=== PATIENT | male | born 1960 | race Caucasian/White ===

== ENCOUNTER 2018-02-28 11:06 | Inpatient (IN) | payer OTHER ==
[~2018-02-28] VITALS: Ht 172.7 cm; Wt 93.9 kg
[2018-02-28] MEDS ORDERED: METOPROLOL TART25 M1 PO (12:33)
[2018-02-28] MEDS ORDERED: CLOPIDOGREL75 M1 PO (12:33)
[2018-02-28] MEDS ORDERED: ATORVASTATIN CA40 M1 PO (12:33)
[2018-02-28] MEDS ORDERED: METFORMIN HCL1000 M1 PO (12:33)
[2018-02-28 12:34] LABS: ABSOLUTE BASOPHIL COUNT 0 /CUMM (0.0-0.2); ABSOLUTE EOSINOPHIL COUNT 0.1 /CUMM (0.0-0.7); ABSOLUTE GRANULOCYTE CT 7.7 /CUMM (1.4-6.5); ABSOLUTE LYMPH COUNT 0.3 /CUMM (1.2-3.4); ABSOLUTE MONOCYTE COUNT 0.8 /CUMM (0.10-0.60); BASOPHIL % 0.1 % (0.0-2.0); EOSINOPHIL % 0.6 % (0-5); GRANULOCYTE % 86.2 % (42.2-75.2); HEMATOCRIT 49.1 % (42-52); MEAN CORPUSCULAR HGB CONC 34.6 G/DL (33.0-37.0); MEAN CORPUSCULAR VOLUME 86.7 FL (80.0-94.0); MEAN PLATELET VOLUME 7.9 FL (7.4-10.4); PLATELET COUNT 240 /CUMM (130-400); RBC DISTRIBUTION WIDTH 14.1 % (11.5-14.5); RED BLOOD CELL CT 5.67 /CUMM (4.70-6.10); WHITE BLOOD CELL COUNT 8.9 /CUMM (4.8-10.8)
[2018-02-28] MEDS ORDERED: JARDIANCE10 M1 PO (12:34)
[2018-02-28] MEDS ORDERED: ASPIRIN81 M4 PO (12:36)
--- NOTE | 2018-02-28 12:40 | ED GI/GU/ABDOMINAL COMPLAINT ---
See Addendum History of Present Illness General Chief Complaint: Nausea, Vomiting, Diarrhea Stated Complaint: +NVD Source: patient, family, old records Exam Limitations: no limitations Vital Signs & Intake/Output Vital Signs & Intake/Output Vital Signs Date Time Temp Pulse Resp B/P B/P Pulse O2 O2 Flow FiO2 Mean Ox Delivery Rate 02/28 1548 94/62 02/28 1539 95/55 02/28 1536 99.4 102 18 99/54 98 Room Air 02/28 1231 99.0 82 22 145/79 97 Allergies Coded Allergies: iodine (HIVES 02/28/18) shellfish derived (HIVES 02/28/18) venom-honey bee (HIVES 02/28/18) Reconcile Medications Aspirin (Aspirin*) 81 MG TAB.CHEW 1 TAB PO DAILY HEART (Reported) Atorvastatin Calcium 40 MG TABLET 1 TAB PO DAILY CHOL (Reported) Clopidogrel Bisulfate (Clopidogrel) 75 MG TABLET 1 TAB PO DAILY THINNER ( Reported) Empagliflozin (Jardiance) 10 MG TABLET 1 TAB PO DAILY DM (Reported) Metformin HCl 1,000 MG TABLET 1 TAB PO BID DM (Reported) Metoprolol Tartrate 25 MG TABLET 1 TAB PO BID HTN (Reported) Triage Note: PT TO ED WITH C/O NAUSEA VOMITING AND DIARRHEA SINCE THIS MORNING. Triage Nurses Notes Reviewed? yes Onset: Abrupt Duration: hour(s):, 10pm last night HPI: Patient presents for evaluation of abdominal pain and vomiting and diarrhea beginning at about 10 PM last night. Patient states that patient had another episode of vomiting and diarrhea at about 8:00 this morning (nonbloody). The patient has had about 12-13 episodes of vomiting and diarrhea. Beginning at about 9:30 this morning the patient began vomiting bile. In addition the patient states he has felt severe dizziness fatigue and inability to ambulate and mildly headachy. Patient denies outright fever or other cold symptoms. The patient's suspects that he might be showing lactose intolerance over the past few months associated with dairy intake. Patient feels that he has improved somewhat with avoidance of dairy products. (Analisa ESQUIVEL,Froilan Michael) Past History Travel History Traveled to [place] past 21 day No Medical History Any Pertinent Medical History? see below for history Neurological: NONE EENT: NONE Cardiovascular: hypertension, STENTS, CHOL Respiratory: NONE Gastrointestinal: NONE Hepatic: NONE Renal: NONE Musculoskeletal: NONE Psychiatric: NONE Endocrine: NIDDM History of MRSA: No History of VRE: No History of CDIFF: No Surgical History Surgical History: non-contributory Psychosocial History Who do you live with Patient/Self Services at Home None What is your primary language Liberian Tobacco Use: Never used Family History Hx Contributory? No (Froilan Hauser MD) Review of Systems Review of Systems Constitutional: Reports: see HPI. EENTM: Reports: no symptoms. Respiratory: Reports: no symptoms. Cardiovascular: Reports: no symptoms. GI: Reports: see HPI. Genitourinary: Reports: no symptoms. Musculoskeletal: Reports: see HPI. Skin: Reports: no symptoms. Neurological/Psychological: Reports: no symptoms. Hematologic/Endocrine: Reports: no symptoms. Immunologic/Allergic: Reports: no symptoms. All Other Systems: Reviewed and Negative (Analisa ESQUIVEL,Froilan Michael) Physical Exam Physical Exam Gastrointestinal: see below Comments: Gen.: Well-nourished, well-developed, no acute respiratory distress. Head: Normocephalic, atraumatic. Eyes: Normal inspection bilaterally Ears: Normal inspection bilaterally Nose: Normal inspection Throat/mouth : Moist mucosa Neck: Supple, full range of motion, no goiter Heart: Regular rate and rhythm, no murmurs rubs or gallops Lungs: Clear to auscultation bilaterally with normal air entry Chest: Nontender Back: Normal range of motion Abdomen: Soft, nontender, nondistended, distant bowel sounds Extremities: Normal range of motion grossly, equal radial pulses, no cyanosis clubbing or edema Neurologic: Cranial nerves grossly intact, speech is clear Skin: warm and dry Psychiatric: Calm, cooperative, no apparent delusions or hallucinations Core Measures ACS in differential dx? No Sepsis Present: No Sepsis Focused Exam Completed? No (Froilan Hauser MD) Progress Differential Diagnosis: gastroenteritis, viral syndrome, food poisoning, dehydration, electrolyte abnormality, DKA Plan of Care: Orders Procedure Date/time Status Heart Healthy Diet 03/01 B Active ED Holding Orders 02/28 1710 Active Admit to inpatient 02/28 171 Active Add-on Test (ER Only) 02/28 1710 Active Vital Signs 02/28 1710 Active Code Status 02/28 1710 Active COMPREHENSIVE METABOLIC PANEL 02/28 1602 Active CULTURE,STOOL 02/28 1513 Active C.DIFFICILE 02/28 1513 Active BLOOD CULTURE 02/28 1513 Active CBC WITHOUT DIFFERENTIAL 02/28 1457 Complete URINALYSIS 02/28 1216 Active LIPASE 02/28 121 Complete COMPREHENSIVE METABOLIC PANEL 02/28 121 Complete CBC WITHOUT DIFFERENTIAL 02/28 121 Complete AMYLASE 02/28 121 Complete Current Medications Sig/Brandon Start time Last Medication Dose Stop Time Status Admin Insulin Human Regular 5 UNITS ONCE ONE 02/28 1715 UNVr (NovoLIN R) 02/29 1716 Insulin Human Regular 100 UNIT ONCE ONE 02/28 1715 UNir (Novolin R (Insulin 02/29 1716 Drip)) Sodium Chloride 100 ML (Normal Saline 0.9%) Sodium Chloride 1,000 ML BOLUS ONE 02/28 161 AC 02/28 (Normal Saline 0.9%) 02/28 1714 1605 Laboratory Tests 02/28/18 1520: CBC w Diff MAN DIFF ORDERED, RBC 5.10, MCV 87.4, MCH 30.4, MCHC 34.7, RDW 14.2, MPV 8.2, Gran % 84.7 H, Lymphocytes % 5.9 L, Monocytes % 8.8, Eosinophils % 0.4, Basophils % 0.2, Absolute Granulocytes 7.6 H, Segmented Neutrophils 66, Band Neutrophils 17 H, Absolute Lymphocytes 0.5 L, Lymphocytes 5 L, Monocytes 11 H, Absolute Monocytes 0.8 H, Eosinophils 1, Absolute Eosinophils 0, Absolute Basophils 0, Platelet Estimate VERIFIED BY SMEAR, Normocytic RBCs VERIFIED, Normochromic RBCs VERIFIED 02/28/18 1225: Anion Gap 22 H, Estimated GFR 48 L, BUN/Creatinine Ratio 12.7, Glucose 357 H, Calcium 9.8, Total Bilirubin 1.0, AST 44, ALT 54, Alkaline Phosphatase 86, Total Protein 8.2, Albumin 4.7, Globulin 3.5, Albumin/Globulin Ratio 1.3, Amylase 87, Lipase 214, CBC w Diff MAN DIFF ORDERED, RBC 5.67, MCV 86.7, MCH 30.0, MCHC 34.6 , RDW 14.1, MPV 7.9, Gran % 86.2 H, Lymphocytes % 3.6 L, Monocytes % 9.5 H, Eosinophils % 0.6, Basophils % 0.1, Absolute Granulocytes 7.7 H, Segmented Neutrophils 66, Band Neutrophils 21 H, Absolute Lymphocytes 0.3 L, Lymphocytes 3 L, Monocytes 8, Absolute Monocytes 0.8 H, Eosinophils 1, Absolute Eosinophils 0.1, Basophils 1, Absolute Basophils 0, Platelet Estimate VERIFIED BY SMEAR, Anisocytosis 1+ Microbiology 02/28 1513 STOOL: Clostridium difficile Toxin A & B - ORD 02/28 151 STOOL: Stool Culture - ORD 02/28 151 BLOOD: Blood Culture - ORD 02/28 151 BLOOD: Blood Culture - ORD Initial ED EKG: none Comments: 02/28/2018 3:03:12 PM MILY is feeling better and is asking for something to drink. I have advised him of the elevated band count and he is agreeable to a repeat CBCs to reevaluate his band count for improvement. 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 (Analisa ESQUIVEL,Froilan Michael) Departure Departure Condition: Stable Referrals: Enrique Soler MD (PCP/Family) Departure Forms: Customer Survey General Discharge Information (Analisa ESQUIVEL,Froilan Michael) Departure Disposition: STILL A PATIENT Clinical Impression Primary Impression: Hypotension Secondary Impressions: DKA (diabetic ketoacidoses), Vomiting Comments 02/28/18 4 PM 57-year-old man signed out to me by Dr. Hauser. Status post vomiting and diarrhea after eating pasta. He has a past medical history of diabetes mellitus and has been noncompliant. Review of his labs reveal glucose greater than 300 and an anion gap acidosis. He is also hypotensive. He is receiving additional IV fluids and his labs are being repeated. Admission Note Spoke With: Humble ESQUIVEL,Abdoulaye Caicedo Documentation of Exam: Documentation of any treatments & extenuating circumstances including Concerns Regarding Discharge (functional status, medication knowledge or non-compliance, living conditions, etc.) that warrant an admission rather than observation: [ Patient needs admission for IV fluids, insulin drip, endocrinology consult. The patient is in diabetic ketoacidosis, he also needs IV fluids as he is hypotensive] (Froilan Daley DO)
--- NOTE | 2018-02-28 14:46 | CT SCAN REPORT ---
EXAMINATION: CT ABDOMEN AND PELVIS WITHOUT CONTRAST CLINICAL INFORMATION: Abdominal pain, vomiting and diarrhea. COMPARISON: None TECHNIQUE: Multidetector volumetric imaging was performed from the superior aspect of the liver through the pubic symphysis. Sagittal and coronal reformatted images were obtained on the technologist's workstation. DLP: 607 mGy-cm FINDINGS: Visualized lung bases are well aerated. Punctate calcified granuloma of the right lung base. Incompletely visualized coronary artery calcifications. The liver demonstrates normal size and contour, however, echogenicity of the liver is diffusely decreased. There is some increased echogenicity adjacent to the gallbladder suggesting focal fatty sparing. The gallbladder is physiologically distended and grossly unremarkable. Mild fatty atrophy of the pancreas. The spleen and adrenal glands are unremarkable. The kidneys are symmetric in size. No renal calculi or hydronephrosis bilaterally. 1 cm right upper pole cyst. Subcentimeter hypodensity of the left kidney is too small to accurately characterize. Normal caliber loops of small and large bowel. Normal appendix. Scattered mesenteric and retroperitoneal lymph nodes are not pathologically enlarged. The abdominal aorta is normal in caliber and demonstrates only mild atherosclerotic disease. The bladder is only mildly distended and therefore difficult to accurately evaluate, but grossly unremarkable. Fat-containing bilateral inguinal hernias, left larger than right. No acute osseous abnormality. Bilateral L5 pars defects. IMPRESSION: 1. Diffusely decreased liver attenuation. This is nonspecific but most suggestive of hepatic steatosis with focal fatty sparing. 2. Small right renal cyst. Left renal hypodensity too small to accurately characterize. 3. Fat-containing bilateral inguinal hernias, left greater than right.
[2018-02-28 15:38] LABS: ABSOLUTE BASOPHIL COUNT 0 /CUMM (0.0-0.2); ABSOLUTE EOSINOPHIL COUNT 0 /CUMM (0.0-0.7); ABSOLUTE GRANULOCYTE CT 7.6 /CUMM (1.4-6.5); ABSOLUTE LYMPH COUNT 0.5 /CUMM (1.2-3.4); ABSOLUTE MONOCYTE COUNT 0.8 /CUMM (0.10-0.60); BASOPHIL % 0.2 % (0.0-2.0); EOSINOPHIL % 0.4 % (0-5); GRANULOCYTE % 84.7 % (42.2-75.2); HEMATOCRIT 44.6 % (42-52); MEAN CORPUSCULAR HGB 30.4 PG (27.0-31.0); MEAN CORPUSCULAR HGB CONC 34.7 G/DL (33.0-37.0); MEAN CORPUSCULAR VOLUME 87.4 FL (80.0-94.0); MEAN PLATELET VOLUME 8.2 FL (7.4-10.4); PLATELET COUNT 228 /CUMM (130-400); RBC DISTRIBUTION WIDTH 14.2 % (11.5-14.5); WHITE BLOOD CELL COUNT 8.9 /CUMM (4.8-10.8)
--- NOTE | 2018-02-28 19:14 | History & Physical ---
Shayne Duffy 02/28/181913: General Information and HPI MD Statement: I have seen and personally examined MILY MCBRIDE and documented this H&P. The patient is a 57 year old M who presented with a patient stated chief complaint of [N/V/D]. Source of Information: patient, old records Exam Limitations: no limitations History of Present Illness: This is 57 year-old man with medical history of HTN, HLD, CAD s/p PCI 2012, DM type 2. He presented to the ED with c/o nausea, vomiting and diarrhea. He stated that yesterday night after he ate pasta with red sauce and bread and after that he felt bloated, he states he had couple of nonbloody watery diarrhea and after that he went to bed. When he wake up in A.M. he had multiple nonbloody watery diarrhea and feels nauseated so he induce the vomiting reflux using his finger, he stated that he vomited more than 5 times that was nonbloody and with some food and after that become more like bile and after that he start to c/o abdominal pain that is secondary to the vomiting. Reports some chills, sweating and dehydrated deny any fever. He stated that he eat from the same place for long time and start first time he had the symptoms. He denied any sick contact. he was started on new DM medication on last Nov 2017 that was Jardiance ( Empagliflozin) and due to that he lost around 20 Ib and increased urine frequency. He stated that due to the above symptoms he feel weak and fatigued with mild lightheadedness. He stated that after the fluid he received in ED he start to feel much better and he now can hold the water and jessica drink down without feeling nauseated or vomiting. He deny fever, chest pain, shortness of breath, heart racing, wheezing, cough, bloody bowel movement, hematuria, dysuria, change in vision or hearing. He quit smoking 5 years ago, he smoked 1PPD for more than 30 year. In ED patient received total of 3 L normal saline boluses his BP improve from 94 /52 to 108/60 , his blood sugar initially was 357, with negative acetone level, repeated BS was 280 without receiving any insulin, and the BEP improved comparing with the 1 on the presentation. Last admission to [facility] was in 2012 for chest pain and the patient was transferred here to other hospital for cardiac cath. Allergies/Medications Allergies: Coded Allergies: iodine (HIVES 02/28/18) shellfish derived (HIVES 02/28/18) venom-honey bee (HIVES 02/28/18) Home Med list Aspirin (Aspirin*) 81 MG TAB.CHEW 1 TAB PO DAILY HEART (Reported) Atorvastatin Calcium 40 MG TABLET 1 TAB PO DAILY CHOL (Reported) Empagliflozin (Jardiance) 10 MG TABLET 1 TAB PO DAILY DM (Reported) Metformin HCl 1,000 MG TABLET 1 TAB PO BID DM (Reported) Metoprolol Tartrate 25 MG TABLET 1 TAB PO BID HTN (Reported) Past History Travel History Traveled to [place] past 21 day No Medical History Neurological: NONE EENT: NONE Cardiovascular: hypertension, STENTS, CHOL Respiratory: NONE Gastrointestinal: NONE Hepatic: NONE Renal: NONE Musculoskeletal: NONE Psychiatric: NONE Endocrine: NIDDM History of MRSA: No History of VRE: No History of CDIFF: No Surgical History Surgical History: hernia repair-inguinal Past Family/Social History Family History Relations & Conditions if any MOTHER (heart disease). FATHER (ID,). Psychosocial History Services at Home: None Smoking Status: Former Smoker ETOH Use: occasional use Illicit Drug Use: denies illicit drug use Functional Ability ADLs Independent: dressing, eating, toileting, bathing. Ambulation: independent IADLs Independent: shopping, housework, finances, food prep, telephone, transportation , medication admin. Review of Systems Review of Systems Constitutional: Reports: see HPI. Cardiovascular: Denies: see HPI. Respiratory: Denies: see HPI. GI: Reports: see HPI. Genitourinary: Reports: see HPI. Exam & Diagnostic Data Last 24 Hrs of Vital Signs/I&O Vital Signs Date Time Temp Pulse Resp B/P B/P Pulse O2 O2 Flow FiO2 Mean Ox Delivery Rate 02/28 2034 90 16 105/55 99 Room Air 02/28 1723 16 96/52 96 Room Air 02/28 1548 94/62 02/28 1539 95/55 02/28 1536 99.4 102 18 99/54 98 Room Air 02/28 1231 99.0 82 22 145/79 97 Intake & Output 02/28 1600 02/28 0800 02/28 0000 Intake Total 1000 Output Total Balance 1000 Intake, IV 1000 Patient 207 lb Weight Weight Reported by Patient Measurement Method Physical Exam General Appearance Alert, Oriented X3, Cooperative, No Acute Distress Skin Temp/Moisture Exam: Warm/Dry HEENT Atraumatic, PERRLA, EOMI, dehydrated Neck Supple, No JVD Cardiovascular Regular Rate, Normal S1, Normal S2 Lungs Clear to Auscultation, Normal Air Movement Abdomen Normal Bowel Sounds, Soft, No Tenderness, obese Extremities No Cyanosis, No Edema, Normal Pulses Last 24 Hrs of Labs/Jordan: Laboratory Tests 02/28/182030: Lactic Acid 2.8 H 02/28/18 1919: Urine Color YEL, Urine Clarity HAZY H, Urine pH 5.5, Ur Specific Ferris 1.025, Urine Protein 100 H, Urine Ketones NEG, Urine Nitrite NEG, Urine Bilirubin NEG, Urine Urobilinogen 0.2, Ur Leukocyte Esterase NEG, Ur Microscopic SEDIMENT EXAMINED, Urine RBC FEW H, Urine WBC 1-3 H, Ur Epithelial Cells RARE, Urine Bacteria FEW H, Hyaline Casts 1-3 H, Urine Mucus FEW, Urine Hemoglobin NEG, Urine Glucose >=1000 H 02/28/18 1656: Anion Gap 12, Estimated GFR 57 L, BUN/Creatinine Ratio 16.2, Glucose 280 H, Calcium 8.4, Phosphorus 2.8, Magnesium 1.3 L, Total Bilirubin 0.7, AST 27, ALT 46, Alkaline Phosphatase 46, Troponin I < 0.01, Total Protein 5.9 L, Albumin 3.2 L, Globulin 2.7, Albumin/Globulin Ratio 1.2 02/28/18 1520: CBC w Diff MAN DIFF ORDERED, RBC 5.10, MCV 87.4, MCH 30.4, MCHC 34.7, RDW 14.2, MPV 8.2, Gran % 84.7 H, Lymphocytes % 5.9 L, Monocytes % 8.8, Eosinophils % 0.4, Basophils % 0.2, Absolute Granulocytes 7.6 H, Segmented Neutrophils 66, Band Neutrophils 17 H, Absolute Lymphocytes 0.5 L, Lymphocytes 5 L, Monocytes 11 H, Absolute Monocytes 0.8 H, Eosinophils 1, Absolute Eosinophils 0, Absolute Basophils 0, Platelet Estimate VERIFIED BY SMEAR, Normocytic RBCs VERIFIED, Normochromic RBCs VERIFIED 02/28/18 1225: Anion Gap 22 H, Estimated GFR 48 L, BUN/Creatinine Ratio 12.7, Glucose 357 H, Lactic Acid 4.0 H, Calcium 9.8, Total Bilirubin 1.0, AST 44, ALT 54, Alkaline Phosphatase 86, Total Protein 8.2, Albumin 4.7, Globulin 3.5, Albumin/Globulin Ratio 1.3, Amylase 87, Lipase 214, CBC w Diff MAN DIFF ORDERED, RBC 5.67, MCV 86.7, MCH 30.0, MCHC 34.6, RDW 14.1, MPV 7.9, Gran % 86.2 H, Lymphocytes % 3.6 L, Monocytes % 9.5 H, Eosinophils % 0.6, Basophils % 0.1, Absolute Granulocytes 7.7 H, Segmented Neutrophils 66, Band Neutrophils 21 H, Absolute Lymphocytes 0.3 L, Lymphocytes 3 L, Monocytes 8, Absolute Monocytes 0.8 H, Eosinophils 1, Absolute Eosinophils 0.1, Basophils 1, Absolute Basophils 0, Platelet Estimate VERIFIED BY SMEAR, Anisocytosis 1+, Salicylates < 1.0, Acetone Level NEGATIVE Microbiology 02/28 1943 BLOOD: Blood Culture - RECD 02/28 1919 STOOL: Clostridium difficile Toxin A & B - RECD 02/28 1919 STOOL: Stool Culture - RECD 02/29 1656 BLOOD: Blood Culture - RECD Diagnostic Data EKG Results normal sinus rhythm. Other Results EXAMINATION: CT ABDOMEN AND PELVIS WITHOUT CONTRAST CLINICAL INFORMATION: Abdominal pain, vomiting and diarrhea. COMPARISON: None TECHNIQUE: Multidetector volumetric imaging was performed from the superior aspect of the liver through the pubic symphysis. Sagittal and coronal reformatted images were obtained on the technologist's workstation. DLP: 607 mGy-cm FINDINGS: Visualized lung bases are well aerated. Punctate calcified granuloma of the right lung base. Incompletely visualized coronary artery calcifications. The liver demonstrates normal size and contour, however, echogenicity of the liver is diffusely decreased. There is some increased echogenicity adjacent to the gallbladder suggesting focal fatty sparing. The gallbladder is physiologically distended and grossly unremarkable. Mild fatty atrophy of the pancreas. The spleen and adrenal glands are unremarkable. The kidneys are symmetric in size. No renal calculi or hydronephrosis bilaterally. 1 cm right upper pole cyst. Subcentimeter hypodensity of the left kidney is too small to accurately characterize. Normal caliber loops of small and large bowel. Normal appendix. Scattered mesenteric and retroperitoneal lymph nodes are not pathologically enlarged. The abdominal aorta is normal in caliber and demonstrates only mild atherosclerotic disease. The bladder is only mildly distended and therefore difficult to accurately evaluate, but grossly unremarkable. Fat-containing bilateral inguinal hernias, left larger than right. No acute osseous abnormality. Bilateral L5 pars defects. IMPRESSION: 1. Diffusely decreased liver attenuation. This is nonspecific but most suggestive of hepatic steatosis with focal fatty sparing. 2. Small right renal cyst. Left renal hypodensity too small to accurately characterize. 3. Fat-containing bilateral inguinal hernias, left greater than right. Assessment/Plan Assessment: This is 57 year-old man with medical history of HTN, HLD, CAD s/p PCI 2012, DM type 2. He presented to the ED with c/o nausea, vomiting and diarrhea. we spoke and discuss the p.t with and he agreed about that the patient doesn't need insulin drip, only pre-meal insulin sliding scale and 1 dose of 5 units Levemir, encourage oral intake and continue normal saline IV fluid hydration Problem list: -Hypotension 2/2 volume depletion and decrease oral intake. -Nausea, vomiting and diarrhea that could be most likely due to gastroenteritis. -Acute kidney injury due to volume depletion. -Hyperglycemia with anion gap lactic acidosis due to the above. -Hypomagnesemia secondary to gastroenteritis. Plan: -Admit patient to general medicine floor -Vitals every shift, Accu-Chek every 4 for now -1 dose of 5 units Levemir -Moderate dose insulin sliding scale -Full liquid diet and We'll advance as related -Endocrinology consultation. -IV fluid hydration of normal saline and 125 mL per hour -Keep systolic blood pressure above 90. -We'll follow stool culture, ova. -Trend lactic acid -We will repeat magnesium IV and oral -Trend troponin and EKG -IV Protonix for GI ppt. -Repeat CBC and basic electrolyte in a.m. -Hold off all medication off antidiabetic, hold off metoprolol we will restart if SBP > 130. -Pain pathway -DVT prophylaxis subcutaneous heparin -Full code As Ranked By This Provider Problem List: 1. Vomiting 2. Hypotension Core Measures/Misc (08/13) Acute Coronary Syndrome ACS Diagnosis: No Congestive Heart Failure Congestive Heart Failure Diagnosis No Cerebrovascular Accident CVA/TIA Diagnosis: No VTE (View Protocol) VTE Risk Factors Age>40 No Mechanical VTE Prophylaxis d/t N/A MechProphylax Ordered No VTE Pharm Prophylaxis d/t NA PharmProphylax ordered Sepsis (View protocol) Sepsis Present: No Abdoulaye Kate MD 02/28/182004: Attending MD Review Statement Attending Statement Attending MD Statement: examined this patient, discuss w/resident/PA/SHAREPOINT APPLICATION ARCHITECT, agreed w/resident/PA/SHAREPOINT APPLICATION ARCHITECT, discussed with family, reviewed EMR data (avail), discussed with nursing, discussed with case mgmt, reviewed images, amended to note Attending Assessment/Plan: Pt with sig DM on OHA, IHD previous stents, HTN, Dyslipedemia, PRevious tobacco use with Sig diarrhea - with dehydration and metabolic acidosis with acute kidney failure Sig uncontrolled DM with hyperglycemia Acidosis complicated by diarrhea and metformin Gastroenteritis prob related to pasta he ate IHD with previous stent HTN, HLD Mild elevated lipase Fatty liver Bilateral small inguinal hernia ADmit IVF Insulin HOLD oha Hold jardiance and metformin Hold bp meds unless his bp is more than 150 COnt antiplatelet rx EKG, troponin OK to the floor or tele if ekg is abnormal of troponin is high Rule out mi IV ppi OK with full liquid diet WIll follow closely
[2018-02-28 22:06] VITALS: BP 104/60
[2018-03-01 07:33] VITALS: BP 120/74
--- NOTE | 2018-03-01 07:33 | PN- Housestaff ---
Radha ESQUIVEL,Shaan 03/01/18 0730: Subjective Follow-up For: Food poisoning Subjective: No overnight events. Patient says he feels 100% better this morning. He had N/V/ D after eating some pasta. He says he had stored the pasta at room temperature. Now has had no N/V/D since admission and is actually quite hungry, asking for pizza. No fevers, recent illness, CP, SOB. Review of Systems Constitutional: Reports: no symptoms. EENTM: Reports: no symptoms. Cardiovascular: Reports: no symptoms. Respiratory: Reports: no symptoms. Gastrointestinal: Reports: see HPI. Genitourinary: Reports: no symptoms. Musculoskeletal: Reports: no symptoms. Skin: Reports: no symptoms. Neurological/Psychological: Reports: no symptoms. Hematologic/Endocrine: Reports: no symptoms. Immunologic/Allergic: Reports: no symptoms. Objective Last 24 Hrs of Vital Signs/I&O Vital Signs Date Time Temp Pulse Resp B/P B/P Pulse O2 O2 Flow FiO2 Mean Ox Delivery Rate 02/28 2206 98.3 91 20 104/60 97 02/28 2034 90 16 105/55 99 Room Air 02/28 1723 16 96/52 96 Room Air 02/28 1548 94/62 02/28 1539 95/55 02/28 1536 99.4 102 18 99/54 98 Room Air 02/28 1231 99.0 82 22 145/79 97 Intake & Output 03/01 0800 03/01 0000 02/28 1600 Intake Total 25 1000 Output Total Balance 25 1000 Intake, IV 25 1000 Patient 93.894 kg 93.894 kg Weight Weight Reported by Patient Measurement Method Physical Exam General Appearance: Alert, Oriented X3, Cooperative, No Acute Distress Cardiovascular: Regular Rate, Normal S1, Normal S2 Lungs: Clear to Auscultation Abdomen: Normal Bowel Sounds, Soft, No Tenderness Extremities: No Edema, Normal Pulses, No Tenderness/Swelling Current Medications: Current Medications Sig/Brandon Start time Last Medication Dose Route Stop Time Status Admin Acetaminophen 650 MG Q6P PRN 02/28 1915 DC PO Acetaminophen 1,000 MG Q6P PRN 02/28 1915 AC IV Atorvastatin Calcium 40 MG 1700 03/01 1700 AC PO Clopidogrel Bisulfate 75 MG DAILY 03/01 1000 AC PO Heparin Sodium 5,000 UNIT Q8 02/28 2200 AC 03/01 (Porcine) SC 0519 Hyoscyamine 0.25 MG ONCE ONE 02/28 1245 DC SL 02/28 1246 Insulin Aspart 0 TIDAC 03/01 0800 AC SC Insulin Detemir 5 UNITS ONCE ONE 02/28 1915 DC 02/28 SC 02/28 191 2005 Insulin Human Regular 5 UNITS ONCE ONE 02/28 1715 CAN IV 02/28 171 Insulin Human Regular 100 UNIT ONCE ONE 02/28 1715 CAN Sodium Chloride 100 ML IV 02/28 171 Magnesium Oxide 400 MG BID 02/28 2200 AC 02/28 PO 2325 Magnesium Sulfate 1 GM ONCE ONE 02/28 2115 DC 02/28 Dextrose/Water 100 ML IV 03/01 0114 2147 Ondansetron HCl 4 MG Q8P PRN 02/28 1900 AC IV Ondansetron HCl 0 .STK-MED ONE 02/28 1307 DC .ROUTE Ondansetron HCl 4 MG ONCE ONE 02/28 1245 DC 02/28 IV 02/28 1246 1305 Oxycodone/ 2 TAB Q6P PRN 02/28 191 AC Acetaminophen PO Pantoprazole Sodium 40 MG DAILY 02/28 2035 AC 02/28 IV 2326 Sodium Chloride 1,000 ML Q10H 02/28 1900 AC 02/28 IV 2129 Sodium Chloride 1,000 ML BOLUS ONE 02/28 1615 DC 02/28 IV 02/28 1714 1605 Sodium Chloride 1,000 ML BOLUS ONE 02/28 1600 DC 02/28 IV 02/28 1659 1605 Sodium Chloride 1,000 ML BOLUS ONE 02/28 1245 DC 02/28 IV 02/28 1344 1255 Last 24 Hrs of Lab/Jordan Results Last 24 Hrs of Labs/Mics: Laboratory Tests 03/01/18 0705: Sodium Pending, Potassium Pending, Chloride Pending, Carbon Dioxide Pending, Anion Gap Pending, BUN Pending, Creatinine Pending, BUN/Creatinine Ratio Pending , Magnesium Pending, CBC w Diff Pending, WBC Pending, RBC Pending, Hgb Pending, Hct Pending, MCV Pending, MCH Pending, MCHC Pending, RDW Pending, Plt Count Pending, MPV Pending 03/01/18 0130: Lactic Acid 1.6 02/28/18 2233: Lactic Acid 2.2 H, Troponin I < 0.01 02/28/182030: Lactic Acid 2.8 H 02/28/18 191: Urine Color YEL, Urine Clarity HAZY H, Urine pH 5.5, Ur Specific [place] 1.025, Urine Protein 100 H, Urine Ketones NEG, Urine Nitrite NEG, Urine Bilirubin NEG, Urine Urobilinogen 0.2, Ur Leukocyte Esterase NEG, Ur Microscopic SEDIMENT EXAMINED, Urine RBC FEW H, Urine WBC 1-3 H, Ur Epithelial Cells RARE, Urine Bacteria FEW H, Hyaline Casts 1-3 H, Urine Mucus FEW, Urine Hemoglobin NEG, Urine Glucose >=1000 H 02/28/18 1656: Anion Gap 12, Estimated GFR 57 L, BUN/Creatinine Ratio 16.2, Glucose 280 H, Calcium 8.4, Phosphorus 2.8, Magnesium 1.3 L, Total Bilirubin 0.7, AST 27, ALT 46, Alkaline Phosphatase 46, Troponin I < 0.01, Total Protein 5.9 L, Albumin 3.2 L, Globulin 2.7, Albumin/Globulin Ratio 1.2 02/28/18 1520: Hemoglobin A1c Pending, CBC w Diff MAN DIFF ORDERED, RBC 5.10, MCV 87.4, MCH 30.4, MCHC 34.7, RDW 14.2, MPV 8.2, Gran % 84.7 H, Lymphocytes % 5.9 L, Monocytes % 8.8, Eosinophils % 0.4, Basophils % 0.2, Absolute Granulocytes 7.6 H, Segmented Neutrophils 66, Band Neutrophils 17 H, Absolute Lymphocytes 0.5 L , Lymphocytes 5 L, Monocytes 11 H, Absolute Monocytes 0.8 H, Eosinophils 1, Absolute Eosinophils 0, Absolute Basophils 0, Platelet Estimate VERIFIED BY SMEAR, Normocytic RBCs VERIFIED, Normochromic RBCs VERIFIED 02/28/18 1225: Anion Gap 22 H, Estimated GFR 48 L, BUN/Creatinine Ratio 12.7, Glucose 357 H, Lactic Acid 4.0 H, Calcium 9.8, Total Bilirubin 1.0, AST 44, ALT 54, Alkaline Phosphatase 86, Total Protein 8.2, Albumin 4.7, Globulin 3.5, Albumin/Globulin Ratio 1.3, Amylase 87, Lipase 214, CBC w Diff MAN DIFF ORDERED, RBC 5.67, MCV 86.7, MCH 30.0, MCHC 34.6, RDW 14.1, MPV 7.9, Gran % 86.2 H, Lymphocytes % 3.6 L, Monocytes % 9.5 H, Eosinophils % 0.6, Basophils % 0.1, Absolute Granulocytes 7.7 H, Segmented Neutrophils 66, Band Neutrophils 21 H, Absolute Lymphocytes 0.3 L, Lymphocytes 3 L, Monocytes 8, Absolute Monocytes 0.8 H, Eosinophils 1, Absolute Eosinophils 0.1, Basophils 1, Absolute Basophils 0, Platelet Estimate VERIFIED BY SMEAR, Anisocytosis 1+, Salicylates < 1.0, Acetone Level NEGATIVE Microbiology 02/28 2158 STOOL: Cryptosporidium Antigen - COLB 02/28 2158 STOOL: Giardia Antigen (JORDAN) - COLB 02/28 1943 BLOOD: Blood Culture - RECD 02/28 1919 STOOL: Clostridium difficile Toxin A & B - RECD 02/28 1919 STOOL: Stool Culture - RECD 02/29 1656 BLOOD: Blood Culture - RECD Assessment/Plan Assessment: This is 57 year-old man with medical history of HTN, HLD, CAD s/p PCI 2012, DM type 2 who presented last night with nausea and vomiting and diarrhea. Problem list: 1. Food poisoning 2. Hyperglycemia, resolved 3. Lactic acidosis, resolved 4. Acute kidney injury #Food poisoning: Patient presents with history of acute onset nausea, vomiting, and diarrhea after eating pasta that was sitting at room temperature for multiple hours. Most likely, he ingested a toxin such as staph aureus enterotoxin or Bacillus cereus emetic toxin that caused chemical irritation given the acute onset and quick resolution of the symptoms. His symptoms have since completely resolved and he is actually very hungry this morning. He can be discharged today. -Advance diet as tolerated -Stop IV fluids -Ondansetron and pain medication as needed #Acute kidney injury: Likely prerenal azotemia in the setting of dehydration secondary to diarrhea. -Continue to monitor #Hyperglycemia: Patient initially had hyperglycemia with increased anion gap metabolic acidosis. However, I do not believe he was actually in DKA given that his electrolytes quickly normalized and he has been having acute onset diarrhea after eating. This likely this was caused by food poisoning. However, his sugars have been high at home. He did recently start empagliflozin in November. HgA1c 9.5, needs further management with PCP. Endocrinology suggests starting dulaglutide as an outpatient. -Hold oral hypoglycemics -Insulin sliding scale with Accu-Cheks -Follow up with primary care for further management as an outpatient #Chronic medical problems: -Continue home medications DVT prophylaxis with heparin Consistent carbohydrate 2 diet Full code Problem List: 1. Food poisoning Pain Ratin Pain Location: no Pain Goal: Remain pain free Pain Plan: see a/p Tomorrow's Labs & Rationales: no [place]ble ESQUIVEL,Abdoulaye 03/01/18 0958: Attending MD Review Statement Attending Statement Attending MD Statement: examined this patient, discuss w/resident/PA/WEB ANALYTICS DEVELOPER, agreed w/resident/PA/WEB ANALYTICS DEVELOPER, discussed with family, reviewed EMR data (avail), discussed with nursing, discussed with case mgmt, reviewed images, amended to note Attending Assessment/Plan: Laboratory Tests 03/01 03/01 02/28 02/28 0705 [id number] Chemistry Sodium (137 - 145 mmol/L) 137 Potassium (3.5 - 5.1 mmol/L) 3.8 Chloride (98 - 107 mmol/L) 107 Carbon Dioxide (22 - 30 mmol/L) 21 L Anion Gap (5 - 16) 9 BUN (9 - 20 mg/dL) 14 Creatinine (0.7 - 1.2 mg/dL) 0.8 Estimated GFR (>60 ml/min) > 60 BUN/Creatinine Ratio (7 - 25 %) 17.5 Lactic Acid (0.7 - 2.1 mmol/L) 1.6 2.2 H 2.8 H Magnesium (1.6 - 2.3 mg/dL) 1.6 Troponin I (<0.11 ng/ml) < 0.01 Hematology CBC w Diff NO MAN DIFF REQ WBC (4.8 - 10.8 /CUMM) 9.3 RBC (4.70 - 6.10 /CUMM) 3.93 L Hgb (14.0 - 18.0 G/DL) 12.0 L Hct (42 - 52 %) 35.0 L MCV (80.0 - 94.0 FL) 89.2 MCH (27.0 - 31.0 PG) 30.5 MCHC (33.0 - 37.0 G/DL) 34.2 RDW (11.5 - 14.5 %) 14.4 Plt Count (130 - 400 /CUMM) 213 MPV (7.4 - 10.4 FL) 8.2 Gran % (42.2 - 75.2 %) 68.9 Lymphocytes % (20.5 - 51.1 %) 24.8 Monocytes % (1.7 - 9.3 %) 5.1 Eosinophils % (0 - 5 %) 0.9 Basophils % (0.0 - 2.0 %) 0.3 Absolute Granulocytes (1.4 - 6.5 /CUMM) 6.4 Absolute Lymphocytes (1.2 - 3.4 /CUMM) 2.3 Absolute Monocytes (0.10 - 0.60 /CUMM) 0.5 Absolute Eosinophils (0.0 - 0.7 /CUMM) 0.1 Absolute Basophils (0.0 - 0.2 /CUMM) 0 02/28 02/28 1919 1656 Chemistry Sodium (137 - 145 mmol/L) 138 Potassium (3.5 - 5.1 mmol/L) 4.8 Chloride (98 - 107 mmol/L) 104 Carbon Dioxide (22 - 30 mmol/L) 22 Anion Gap (5 - 16) 12 BUN (9 - 20 mg/dL) 21 H Creatinine (0.7 - 1.2 mg/dL) 1.3 H Estimated GFR (>60 ml/min) 57 L BUN/Creatinine Ratio (7 - 25 %) 16.2 Glucose (65 - 99 mg/dL) 280 H Calcium (8.4 - 10.2 mg/dL) 8.4 Phosphorus (2.5 - 4.5 mg/dL) 2.8 Magnesium (1.6 - 2.3 mg/dL) 1.3 L Total Bilirubin (0.2 - 1.3 mg/dL) 0.7 AST (17 - 59 U/L) 27 ALT (21 - 72 U/L) 46 Alkaline Phosphatase (< 127 U/L) 46 Troponin I (<0.11 ng/ml) < 0.01 Total Protein (6.3 - 8.2 g/dL) 5.9 L Albumin (3.5 - 5.0 g/dL) 3.2 L Globulin (1.9 - 4.2 gm/dL) 2.7 Albumin/Globulin Ratio (1.1 - 2.2 %) 1.2 Urines Urine Color (YEL,AMB,STR) YEL Urine Clarity (CLEAR) HAZY H Urine pH (5.0 - 8.0) 5.5 Ur Specific [place] (1.001 - 1.035) 1.025 Urine Protein (NEG,<30 MG/DL) 100 H Urine Ketones (NEG) NEG Urine Nitrite (NEG) NEG Urine Bilirubin (NEG) NEG Urine Urobilinogen (0.1 - 1.0 EU/dl) 0.2 Ur Leukocyte Esterase (NEG) NEG Ur Microscopic SEDIMENT EXAMINED Urine RBC (0 - 5 /HPF) FEW H Urine WBC (0 - 2 /HPF) 1-3 H Ur Epithelial Cells (NONE,FEW) RARE Urine Bacteria (NEG/NONE) FEW H Hyaline Casts (0/LPF) 1-3 H Urine Mucus (FEW,NONE) FEW Urine Hemoglobin (NEG) NEG Urine Glucose (N MG/DL) >=1000 H / 1520 Chemistry Hemoglobin A1c (4.2 - 5.8 %) 9.5 H Hematology CBC w Diff MAN DIFF ORDERED WBC (4.8 - 10.8 /CUMM) 8.9 RBC (4.70 - 6.10 /CUMM) 5.10 Hgb (14.0 - 18.0 G/DL) 15.5 Hct (42 - 52 %) 44.6 MCV (80.0 - 94.0 FL) 87.4 MCH (27.0 - 31.0 PG) 30.4 MCHC (33.0 - 37.0 G/DL) 34.7 RDW (11.5 - 14.5 %) 14.2 Plt Count (130 - 400 /CUMM) 228 MPV (7.4 - 10.4 FL) 8.2 Gran % (42.2 - 75.2 %) 84.7 H Lymphocytes % (20.5 - 51.1 %) 5.9 L Monocytes % (1.7 - 9.3 %) 8.8 Eosinophils % (0 - 5 %) 0.4 Basophils % (0.0 - 2.0 %) 0.2 Absolute Granulocytes (1.4 - 6.5 /CUMM) 7.6 H Segmented Neutrophils (42.2 - 75.2 %) 66 Band Neutrophils (0.0 - 5.0 %) 17 H Absolute Lymphocytes (1.2 - 3.4 /CUMM) 0.5 L Lymphocytes (20.5 - 51.1 %) 5 L Monocytes (1.7 - 9.3 %) 11 H Absolute Monocytes (0.10 - 0.60 /CUMM) 0.8 H Eosinophils (0 - 5.0 %) 1 Absolute Eosinophils (0.0 - 0.7 /CUMM) 0 Absolute Basophils (0.0 - 0.2 /CUMM) 0 Platelet Estimate (ADEQUATE) VERIFIED BY SMEAR Normocytic RBCs VERIFIED Normochromic RBCs VERIFIED 02/28 1225 Chemistry Sodium (137 - 145 mmol/L) 141 Potassium (3.5 - 5.1 mmol/L) 5.3 H Chloride (98 - 107 mmol/L) 102 Carbon Dioxide (22 - 30 mmol/L) 17 L Anion Gap (5 - 16) 22 H BUN (9 - 20 mg/dL) 19 Creatinine (0.7 - 1.2 mg/dL) 1.5 H Estimated GFR (>60 ml/min) 48 L BUN/Creatinine Ratio (7 - 25 %) 12.7 Glucose (65 - 99 mg/dL) 357 H Lactic Acid (0.7 - 2.1 mmol/L) 4.0 H Calcium (8.4 - 10.2 mg/dL) 9.8 Total Bilirubin (0.2 - 1.3 mg/dL) 1.0 AST (17 - 59 U/L) 44 ALT (21 - 72 U/L) 54 Alkaline Phosphatase (< 127 U/L) 86 Total Protein (6.3 - 8.2 g/dL) 8.2 Albumin (3.5 - 5.0 g/dL) 4.7 Globulin (1.9 - 4.2 gm/dL) 3.5 Albumin/Globulin Ratio (1.1 - 2.2 %) 1.3 Amylase (30 - 110 U/L) 87 Lipase (23 - 300 U/L) 214 Hematology CBC w Diff MAN DIFF ORDERED WBC (4.8 - 10.8 /CUMM) 8.9 RBC (4.70 - 6.10 /CUMM) 5.67 Hgb (14.0 - 18.0 G/DL) 17.0 Hct (42 - 52 %) 49.1 MCV (80.0 - 94.0 FL) 86.7 MCH (27.0 - 31.0 PG) 30.0 MCHC (33.0 - 37.0 G/DL) 34.6 RDW (11.5 - 14.5 %) 14.1 Plt Count (130 - 400 /CUMM) 240 MPV (7.4 - 10.4 FL) 7.9 Gran % (42.2 - 75.2 %) 86.2 H Lymphocytes % (20.5 - 51.1 %) 3.6 L Monocytes % (1.7 - 9.3 %) 9.5 H Eosinophils % (0 - 5 %) 0.6 Basophils % (0.0 - 2.0 %) 0.1 Absolute Granulocytes (1.4 - 6.5 /CUMM) 7.7 H Segmented Neutrophils (42.2 - 75.2 %) 66 Band Neutrophils (0.0 - 5.0 %) 21 H Absolute Lymphocytes (1.2 - 3.4 /CUMM) 0.3 L Lymphocytes (20.5 - 51.1 %) 3 L Monocytes (1.7 - 9.3 %) 8 Absolute Monocytes (0.10 - 0.60 /CUMM) 0.8 H Eosinophils (0 - 5.0 %) 1 Absolute Eosinophils (0.0 - 0.7 /CUMM) 0.1 Basophils (0.0 - 2.0 %) 1 Absolute Basophils (0.0 - 0.2 /CUMM) 0 Platelet Estimate (ADEQUATE) VERIFIED BY SMEAR Anisocytosis 1+ Toxicology Salicylates (0 - 20.0 mg/dL) < 1.0 Acetone Level (NEGATIVE) NEGATIVE Microbiology Date/Time Procedure - Status Source Growth 02/28 2158 Cryptosporidium Antigen - COLB STOOL 02/28 2158 Giardia Antigen (JORDAN) - COLB STOOL 02/28 1943 Blood Culture - RECD BLOOD 02/28 1919 Clostridium difficile Toxin A & B - RES STOOL 02/28 1919 Stool Culture - RES STOOL 02/28 1656 Blood Culture - RECD BLOOD Pt with sig DM on OHA, IHD previous stents, HTN, Dyslipedemia, PRevious tobacco use with Resolved diarrhea - with dehydration and metabolic acidosis with acute kidney failure Sig uncontrolled DM with hyperglycemia Resolved Acidosis complicated by diarrhea and metformin Gastroenteritis prob related to pasta he ate IHD with previous stent HTN, HLD Mild elevated lipase Fatty liver Bilateral small inguinal hernia REC OK to dc Start jardiance and metformin in am strict diet advised Pt can dc his plavix upon dc and cont his asprin 81 mg dialy and will make appt with Dr. Tierney for cardio follow up Cont other out pt meds except plavix upon dc To follow with pcp for dm and cardio for IHD
--- NOTE | 2018-03-01 08:10 | Cons- Endocrinology ---
General Information and HPI Consulting Request Date of Consult: 03/01/18 Requested By: medical team Reason for Consult: Uncontrolled diabetes with acidosis Source of Information: patient, old records Exam Limitations: no limitations History of Present Illness: This 57-year-old male has a long-standing history of diabetes type 2 associated with obesity. He has had diabetes for at least 10 years. Most recently he has been on metformin and Jardiance. He states that on Monday evening he ate some prepared food from a local deli and went to a band rehearsal. When he got home he had left the food on the counter and finished eating it. After that he developed severe nausea vomiting and diarrhea. When he presented to the emergency room he was found to have hypotension, dehydration and evidence of a metabolic acidosis with a positive anion gap. His lactic acid was elevated. His serum acetone was normal. The patient denies any microvascular complications from his diabetes such as diabetic eye disease or kidney disease. He also states he has no numbness and tingling of his fingers or toes. He does have macrovascular disease in that he has been found to have coronary artery disease and has several stents. As an outpatient he admits that he has not been keeping his diabetes and very tight control. He did lose about 25 pounds after starting Jardiance. He does go to the gym. Allergies/Medications Allergies: Coded Allergies: iodine (HIVES 02/28/18) shellfish derived (HIVES 02/28/18) venom-honey bee (HIVES 02/28/18) Home Med List: Aspirin (Aspirin*) 81 MG TAB.CHEW 1 TAB PO DAILY HEART (Reported) Atorvastatin Calcium 40 MG TABLET 1 TAB PO DAILY CHOL (Reported) Clopidogrel Bisulfate (Clopidogrel) 75 MG TABLET 1 TAB PO DAILY THINNER ( Reported) Empagliflozin (Jardiance) 10 MG TABLET 1 TAB PO DAILY DM (Reported) Metformin HCl 1,000 MG TABLET 1 TAB PO BID DM (Reported) Metoprolol Tartrate 25 MG TABLET 1 TAB PO BID HTN (Reported) Review of Systems Review of Systems Constitutional: Denies: chills, fever. Cardiovascular: Denies: chest pain. Respiratory: Denies: short of breath. GI: Reports: nausea, vomiting. Genitourinary: Denies: dysuria. Skin: Reports: no symptoms. Past History Travel History Traveled to [place] past 21 day No Medical History Blood Transfusion Hx: No Neurological: NONE EENT: NONE Cardiovascular: hypertension, STENTS, CHOL Respiratory: NONE Gastrointestinal: NONE Hepatic: NONE Renal: NONE Musculoskeletal: NONE Psychiatric: NONE Endocrine: NIDDM Blood Disorders: NONE Cancer(s): NONE SIGNAL INTELLIGENCE/ELECTRONIC WARFARE/Reproductive: NONE Surgical History Surgical History: hernia repair-inguinal Family History Relations & Conditions If Any: MOTHER (heart disease). FATHER ([place],). Psychosocial History Where Do You Live? Home Services at Home: None Smoking Status: Former Smoker ETOH Use: occasional use Illicit Drug Use: denies illicit drug use Functional Ability ADLs Independent: dressing, eating, toileting, bathing. Ambulation: independent IADLs Independent: shopping, housework, finances, food prep, telephone, transportation , medication admin. Exam & Diagnostic Data Last 24 Hrs of Vital Signs/I&O Vital Signs Date Time Temp Pulse Resp B/P B/P Pulse O2 O2 Flow FiO2 Mean Ox Delivery Rate 03/01 0733 98.3 93 20 120/74 97 Room Air 02/28 2206 98.3 91 20 104/60 97 02/28 2034 90 16 105/55 99 Room Air 04 1723 16 96/52 96 Room Air 04 1548 94/62 04/04 1539 95/55 04/04 1536 99.4 102 18 99/54 98 Room Air 04 1231 99.0 82 22 145/79 97 Intake & Output 04 1600 04/05 0800 04/05 0000 Intake Total 1140 25 Output Total Balance 1140 25 Intake, IV 900 25 Intake, Oral 240 Patient 207 lb Weight Vital Signs Date Time Temp Pulse Resp B/P B/P Pulse O2 O2 Flow FiO2 Mean Ox Delivery Rate 03/01 0733 98.3 93 20 120/74 97 Room Air 02/28 2206 98.3 91 20 104/60 97 /04 2034 90 16 105/55 99 Room Air 04/ 1723 16 96/52 96 Room Air 04 1548 94/62 /04 1539 95/55 /04 1536 99.4 102 18 99/54 98 Room Air 04/ 1231 99.0 82 22 145/79 97 Intake & Output 04/05 1600 04/05 0800 04/05 0000 Intake Total 1140 25 Output Total Balance 1140 25 Intake, IV 900 25 Intake, Oral 240 Patient 207 lb Weight Physical Exam General Appearance: alert, awake, comfortable Head: normal appearance Eyes: Bilateral: normal appearance. Neck: normal inspection Respiratory: normal breath sounds Cardiovascular: regular rate/rhythm Gastrointestinal: normal bowel sounds, soft, non-tender Extremities: normal inspection Labs/Jordan Results: Laboratory Tests 03/01 03/01 02/28 02/28 0705 0130 2233 2031 Chemistry Sodium Pending Potassium Pending Chloride Pending Carbon Dioxide Pending Anion Gap Pending BUN Pending Creatinine Pending BUN/Creatinine Ratio Pending Lactic Acid (0.7 - 2.1 mmol/L) 1.6 2.2 H 2.8 H Magnesium Pending Troponin I (<0.11 ng/ml) < 0.01 Hematology CBC w Diff Pending WBC Pending RBC Pending Hgb Pending Hct Pending MCV Pending MCH Pending MCHC Pending RDW Pending Plt Count Pending MPV Pending 02/28 02/28 1919 1656 Chemistry Sodium (137 - 145 mmol/L) 138 Potassium (3.5 - 5.1 mmol/L) 4.8 Chloride (98 - 107 mmol/L) 104 Carbon Dioxide (22 - 30 mmol/L) 22 Anion Gap (5 - 16) 12 BUN (9 - 20 mg/dL) 21 H Creatinine (0.7 - 1.2 mg/dL) 1.3 H Estimated GFR (>60 ml/min) 57 L BUN/Creatinine Ratio (7 - 25 %) 16.2 Glucose (65 - 99 mg/dL) 280 H Calcium (8.4 - 10.2 mg/dL) 8.4 Phosphorus (2.5 - 4.5 mg/dL) 2.8 Magnesium (1.6 - 2.3 mg/dL) 1.3 L Total Bilirubin (0.2 - 1.3 mg/dL) 0.7 AST (17 - 59 U/L) 27 ALT (21 - 72 U/L) 46 Alkaline Phosphatase (< 127 U/L) 46 Troponin I (<0.11 ng/ml) < 0.01 Total Protein (6.3 - 8.2 g/dL) 5.9 L Albumin (3.5 - 5.0 g/dL) 3.2 L Globulin (1.9 - 4.2 gm/dL) 2.7 Albumin/Globulin Ratio (1.1 - 2.2 %) 1.2 Urines Urine Color (YEL,AMB,STR) YEL Urine Clarity (CLEAR) HAZY H Urine pH (5.0 - 8.0) 5.5 Ur Specific [place] (1.001 - 1.035) 1.025 Urine Protein (NEG,<30 MG/DL) 100 H Urine Ketones (NEG) NEG Urine Nitrite (NEG) NEG Urine Bilirubin (NEG) NEG Urine Urobilinogen (0.1 - 1.0 EU/dl) 0.2 Ur Leukocyte Esterase (NEG) NEG Ur Microscopic SEDIMENT EXAMINED Urine RBC (0 - 5 /HPF) FEW H Urine WBC (0 - 2 /HPF) 1-3 H Ur Epithelial Cells (NONE,FEW) RARE Urine Bacteria (NEG/NONE) FEW H Hyaline Casts (0/LPF) 1-3 H Urine Mucus (FEW,NONE) FEW Urine Hemoglobin (NEG) NEG Urine Glucose (N MG/DL) >=1000 H 04 1520 Chemistry Hemoglobin A1c Pending Hematology CBC w Diff MAN DIFF ORDERED WBC (4.8 - 10.8 /CUMM) 8.9 RBC (4.70 - 6.10 /CUMM) 5.10 Hgb (14.0 - 18.0 G/DL) 15.5 Hct (42 - 52 %) 44.6 MCV (80.0 - 94.0 FL) 87.4 MCH (27.0 - 31.0 PG) 30.4 MCHC (33.0 - 37.0 G/DL) 34.7 RDW (11.5 - 14.5 %) 14.2 Plt Count (130 - 400 /CUMM) 228 MPV (7.4 - 10.4 FL) 8.2 Gran % (42.2 - 75.2 %) 84.7 H Lymphocytes % (20.5 - 51.1 %) 5.9 L Monocytes % (1.7 - 9.3 %) 8.8 Eosinophils % (0 - 5 %) 0.4 Basophils % (0.0 - 2.0 %) 0.2 Absolute Granulocytes (1.4 - 6.5 /CUMM) 7.6 H Segmented Neutrophils (42.2 - 75.2 %) 66 Band Neutrophils (0.0 - 5.0 %) 17 H Absolute Lymphocytes (1.2 - 3.4 /CUMM) 0.5 L Lymphocytes (20.5 - 51.1 %) 5 L Monocytes (1.7 - 9.3 %) 11 H Absolute Monocytes (0.10 - 0.60 /CUMM) 0.8 H Eosinophils (0 - 5.0 %) 1 Absolute Eosinophils (0.0 - 0.7 /CUMM) 0 Absolute Basophils (0.0 - 0.2 /CUMM) 0 Platelet Estimate (ADEQUATE) VERIFIED BY SMEAR Normocytic RBCs VERIFIED Normochromic RBCs VERIFIED 02/28 1225 Chemistry Sodium (137 - 145 mmol/L) 141 Potassium (3.5 - 5.1 mmol/L) 5.3 H Chloride (98 - 107 mmol/L) 102 Carbon Dioxide (22 - 30 mmol/L) 17 L Anion Gap (5 - 16) 22 H BUN (9 - 20 mg/dL) 19 Creatinine (0.7 - 1.2 mg/dL) 1.5 H Estimated GFR (>60 ml/min) 48 L BUN/Creatinine Ratio (7 - 25 %) 12.7 Glucose (65 - 99 mg/dL) 357 H Lactic Acid (0.7 - 2.1 mmol/L) 4.0 H Calcium (8.4 - 10.2 mg/dL) 9.8 Total Bilirubin (0.2 - 1.3 mg/dL) 1.0 AST (17 - 59 U/L) 44 ALT (21 - 72 U/L) 54 Alkaline Phosphatase (< 127 U/L) 86 Total Protein (6.3 - 8.2 g/dL) 8.2 Albumin (3.5 - 5.0 g/dL) 4.7 Globulin (1.9 - 4.2 gm/dL) 3.5 Albumin/Globulin Ratio (1.1 - 2.2 %) 1.3 Amylase (30 - 110 U/L) 87 Lipase (23 - 300 U/L) 214 Hematology CBC w Diff MAN DIFF ORDERED WBC (4.8 - 10.8 /CUMM) 8.9 RBC (4.70 - 6.10 /CUMM) 5.67 Hgb (14.0 - 18.0 G/DL) 17.0 Hct (42 - 52 %) 49.1 MCV (80.0 - 94.0 FL) 86.7 MCH (27.0 - 31.0 PG) 30.0 MCHC (33.0 - 37.0 G/DL) 34.6 RDW (11.5 - 14.5 %) 14.1 Plt Count (130 - 400 /CUMM) 240 MPV (7.4 - 10.4 FL) 7.9 Gran % (42.2 - 75.2 %) 86.2 H Lymphocytes % (20.5 - 51.1 %) 3.6 L Monocytes % (1.7 - 9.3 %) 9.5 H Eosinophils % (0 - 5 %) 0.6 Basophils % (0.0 - 2.0 %) 0.1 Absolute Granulocytes (1.4 - 6.5 /CUMM) 7.7 H Segmented Neutrophils (42.2 - 75.2 %) 66 Band Neutrophils (0.0 - 5.0 %) 21 H Absolute Lymphocytes (1.2 - 3.4 /CUMM) 0.3 L Lymphocytes (20.5 - 51.1 %) 3 L Monocytes (1.7 - 9.3 %) 8 Absolute Monocytes (0.10 - 0.60 /CUMM) 0.8 H Eosinophils (0 - 5.0 %) 1 Absolute Eosinophils (0.0 - 0.7 /CUMM) 0.1 Basophils (0.0 - 2.0 %) 1 Absolute Basophils (0.0 - 0.2 /CUMM) 0 Platelet Estimate (ADEQUATE) VERIFIED BY SMEAR Anisocytosis 1+ Toxicology Salicylates (0 - 20.0 mg/dL) < 1.0 Acetone Level (NEGATIVE) NEGATIVE Assessment/Plan Assessment/Plan This 57-year-old male with a history of type 2 diabetes on Jardiance and metformin presented with nausea vomiting dehydration and evidence of metabolic acidosis with positive anion gap. His lactic acid was found to be elevated and his serum acetone was negative. However the acetest measures only acetone and not beta hydroxybutyrate. Most likely this was just lactic acidosis due to dehydration with decreased perfusion of tissues. However there is been a significant number of cases of diabetic ketoacidosis with only a mild to moderately elevated blood sugar in patients on Jardiance. Jardiance makes patients more prone to euglycemic ketoacidosis.. The patient improved significantly after hydration with normal saline. He had a small dose of Levemir consisting of 5 units last night. He is on sliding scale NovoLog before meals. His blood sugar this morning is 167. Her nausea and vomiting has resolved and the patient is hungry and wants to eat breakfast. This morning's labs are pending. We should check a hemoglobin A1c. Suggest that if the patient's labs are improved this morning he can probably be discharged to home. He should follow a careful diet. He should monitor his sugars carefully. He can resume his Jardiance and metformin tomorrow a.m. If his hemoglobin A1c is elevated and he is having trouble obtaining good control of his diabetes he could consider a GLP 1 analogue such as Trulicity once he feels better. Consult Acknowledgment - Thank you for your consult request.
[2018-03-01 08:22] LABS: ABSOLUTE BASOPHIL COUNT 0 /CUMM (0.0-0.2); ABSOLUTE EOSINOPHIL COUNT 0.1 /CUMM (0.0-0.7); ABSOLUTE GRANULOCYTE CT 6.4 /CUMM (1.4-6.5); ABSOLUTE MONOCYTE COUNT 0.5 /CUMM (0.10-0.60); MEAN PLATELET VOLUME 8.2 FL (7.4-10.4); RBC DISTRIBUTION WIDTH 14.4 % (11.5-14.5)
[2018-03-01 08:45] LABS: ABSOLUTE LYMPH COUNT 2.3 /CUMM (1.2-3.4); BASOPHIL % 0.3 % (0.0-2.0); EOSINOPHIL % 0.9 % (0-5); GRANULOCYTE % 68.9 % (42.2-75.2); MEAN CORPUSCULAR HGB 30.5 PG (27.0-31.0); MEAN CORPUSCULAR HGB CONC 34.2 G/DL (33.0-37.0); MEAN CORPUSCULAR VOLUME 89.2 FL (80.0-94.0); PLATELET COUNT 213 /CUMM (130-400); RED BLOOD CELL CT 3.93 /CUMM (4.70-6.10); WHITE BLOOD CELL COUNT 9.3 /CUMM (4.8-10.8)
--- NOTE | 2018-03-01 10:18 | Patient Discharge Instructions ---
Discharge Instructions General Discharge Information You were seen/treated for: Food poisoning Watch for these problems: Fever, chest pain, shortness of breath Special Instructions: Please take all medications as directed. Please follow up with primary care and cardiology. Diet Continue normal diet: No Recommended Diet: Diabetic Activity Full Activity/No Limits: Yes Acute Coronary Syndrome Inclusion Criteria At DC or during hospital stay patient has or had the following: ACS DIAGNOSIS No Discharge Core Measures Meds if any: Prescribed or Continued at Discharge Meds if any: NOT Prescribed or Continued at Discharge Congestive Heart Failure Inclusion Criteria At DC or during hospital stay patient has or had the following: CHF DIAGNOSIS No Discharge Core Measures Meds if any: Prescribed or Continued at Discharge Meds if any: NOT Prescribed or Continued at Discharge Cerebrovascular accident Inclusion Criteria At DC or during hospital stay patient has or had the following: CVA/TIA Diagnosis No Discharge Core Measures Meds if any: Prescribed or Continued at Discharge Meds if any: NOT Prescribed or Continued at Discharge Venous thromboembolism Inclusion Criteria VTE Diagnosis No VTE Type NONE VTE Confirmed by (Test) NONE Discharge Core Measures - Per Current guidelines, there needs to be overlap - treatment for the first 5 days of Warfarin therapy. - If discharged on Warfarin prior to 5 days of - overlap therapy, the patient will need to be - assessed for post discharge needs including - *Post discharge parental anticoagulation - *Warfarin and/or parental anticoagulation education - *Follow up date to check INR post discharge At least 5 days overlap therapy as Inpatient No Meds if any: Prescribed or Continued at Discharge Note: Overlap Therapy is Warfarin and Anticoagulant Meds if any: NOT Prescribed or Continued at Discharge
--- NOTE | 2018-03-01 10:19 | Discharge Summary ---
Visit Information Visit Dates Admission Date: 02/28/18 Discharge Date: 03/01/18 Hospital Course Course Attending Physician: Humble ESQUIVEL,Abdoulaye Caicedo Primary Care Physician: Enrique Soler MD Hospital Course: This is 57 year-old man with medical history of HTN, HLD, CAD s/p PCI 2012, DM type 2 who presented with nausea and vomiting and diarrhea. In ED patient received total of 3 L normal saline boluses his BP improve from 94 /52 to 108/60 , his blood sugar initially was 357, with negative acetone level, repeated BS was 280 without receiving any insulin, and the BEP improved comparing with the 1 on the presentation. Chest x-ray showed a persistent dense left lung base of left pleural effusion and probable underlying infiltrate and/ or atelectasis consistent with prior study. He was admitted to general medicine and treated for the following problems: 1. Food poisoning 2. Hyperglycemia 3. Lactic acidosis 4. Acute kidney injury #Food poisoning: Patient presented with history of acute onset nausea, vomiting, and diarrhea after eating pasta that was sitting at room temperature for multiple hours. Most likely, he ingested a toxin such as staph aureus enterotoxin or Bacillus cereus emetic toxin that caused chemical irritation given the acute onset and quick resolution of the symptoms. His symptoms have since completely resolved and he was very hungry the following morning. He did receive IV fluid hydration and his diet was advanced as tolerated. He is now tolerating food well and is stable for discharge. #Acute kidney injury: Patient presented with an acute kidney injury. Likely prerenal azotemia in the setting of dehydration secondary to diarrhea. It resolved with fluid hydration. #Hyperglycemia: Patient initially had hyperglycemia with increased anion gap metabolic acidosis. However, I do not believe he was actually in DKA given that his electrolytes quickly normalized and he was having acute onset diarrhea after eating. This likely this was caused by food poisoning. Endocrinology was consulted and agrees with this. HgA1c was 9.5. Endocrinology suggests starting dulaglutide as an outpatient. He can continue his normal antihyperglycemic agents tomorrow and follow-up with primary care for further management. #Chronic medical problems: His other home medications were continued. His clopidogrel was stopped and he should follow-up with Dr. Tierney for further care of his cardiac issues. Allergies: Coded Allergies: iodine (HIVES 02/28/18) shellfish derived (HIVES 02/28/18) venom-honey bee (HIVES 02/28/18) Disposition Summary Disposition Principal Diagnosis: 1. Food poisoning Additional Diagnosis: 2. Hyperglycemia 3. Lactic acidosis 4. Acute kidney injury Discharge Disposition: home or self care Discharge Instructions General Discharge Information Code Status: Full Code Patient's Diet: Diabetic diet Patient's Activity: As tolerated Follow-Up Instructions/Appts: Please take all medications as directed. Please follow-up with Dr. Tierney, cardiology, and primary care. Medications at Discharge Discharge Medications: Stop taking the following medications: Clopidogrel Bisulfate (Clopidogrel) 75 MG TABLET ORAL DAILY Qty = 90 Continue taking these medications: Atorvastatin Calcium (Atorvastatin Calcium) 40 MG TABLET 1 Tablet ORAL DAILY Qty = 90 Metformin HCl (Metformin HCl) 1,000 MG TABLET 1 Tablet ORAL TWICE DAILY Qty = 180 Metoprolol Tartrate (Metoprolol Tartrate) 25 MG TABLET 1 Tablet ORAL TWICE DAILY Qty = 180 Empagliflozin (Jardiance) 10 MG TABLET 1 Tablet ORAL DAILY Qty = 90 Aspirin (Aspirin*) 81 MG TAB.CHEW 1 Tablet ORAL DAILY Copies To: Karlene ESQUIVEL,Enrique Saeed; Messi ESQUIVEL,Morales Tierney MD PHD,Herberth Caicedo
== END 2018-03-01 11:45 | DRG 372 ==
LOC: ERH 11:06 → ERHI 17:10 → 2NA 17:10 → ENRESERV 18:07 → CANRESERV 18:07 → EDBEDREQ 19:14 → ENRESERV 20:39 → ENTRNSPT 20:53 → EDTRNSPTSTS 20:59 → 2NA 21:08 → CMPTRNSPT 21:21 → ENPENDDIS 03-01 10:39 → ENTRNSPT 03-01 11:32 → EDTRNSPT 03-01 11:39 → EDTRNSPTSTS 03-01 11:39 → 2NA 03-01 11:45 → CMPTRNSPT 03-01 11:49
PROVIDERS: Emergency Medicine; Student in an Organized Health Care Education/Training Program
DX: A05.0 Foodborne staphylococcal intoxication (principal); E87.2 Acidosis; N17.9 Acute kidney failure, unspecified; I95.9 Hypotension, unspecified; E11.65 Type 2 diabetes mellitus with hyperglycemia; E83.42 Hypomagnesemia; Z79.84 Long term (current) use of oral hypoglycemic drugs; Z87.891 Personal history of nicotine dependence; Z88.8 Allergy status to other drugs, medicaments and biological substances; Z79.82 Long term (current) use of aspirin; E78.5 Hyperlipidemia, unspecified; E86.0 Dehydration; I12.9 Hypertensive chronic kidney disease with stage 1 through stage 4 chronic kidney disease, or unspecified chronic kidney disease
CPT/HCPCS: 2NASP; 36592; 74176; 81001; 82436; 87040; 87045; 87328; 87329; 93005; 93010; G0480; J1644; J1815; J2405